=== PATIENT | female | born 1995 | race American Indian/Alaskan Native ===

== ENCOUNTER 2019-03-23 01:35 | Emergency (ER) | payer SELFPAY ==
[2019-03-23 01:45] VITALS: BP 120/90
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
[2019-03-23] MEDS ORDERED: IBUPROFEN PO ONE (03:17)
[2019-03-23] MEDS: FLEXERIL PO ONE ×2 (03:46→03:49)
[2019-03-23] MEDS: TYLENOL PO ONE ×2 (03:47→03:49)
== END 2019-03-23 03:54 | disposition home or self-care (01) ==
LOC: EEVIPCON 01:35 → ED 01:35
DX: S40.011A Contusion of right shoulder, initial encounter (principal); S63.501A Unspecified sprain of right wrist, initial encounter; S53.401A Unspecified sprain of right elbow, initial encounter; F17.200 Nicotine dependence, unspecified, uncomplicated; J45.909 Unspecified asthma, uncomplicated; V89.2XXA Person injured in unspecified motor-vehicle accident, traffic, initial encounter; Y93.89 Activity, other specified; Y92.488 Other paved roadways as the place of occurrence of the external cause; Y99.8 Other external cause status